=== PATIENT | male | born 1950 | race Caucasian/White ===

== ENCOUNTER → 2017-05-17 | Outpatient (CLI) | payer BC ==
[~2017-05-17] MED LIST: AMLO5CAP2 PO; ASCA500 PO; ASPI-435 PO; BYS/5 PO; CARB25TA12 PO; HYDR25TA4 PO; METH4PAK4 PO; MULT-506 PO; SIMV20TA2 PO
[2017-05-17 10:50] LABS: BASO % 1.1 %; BASO ABS # 0.05 K/uL (0-0.2); COMPLETE YES; EOS % 4.4 %; HEMATOCRIT 44.5 % (42-52); LYMPH % 34.5 %; LYMPH ABS # 1.64 K/uL (1.2-3.4); MEAN CELL VOLUME 88.1 fL (80-100); MEAN CORPUSCULAR HEMOGLOBIN 31.1 pg (25-34); MEAN CORPUSCULAR HGB CONC 35.3 g/dl (32-36); MEAN PLATELET VOLUME 13.1 fL (7.4-10.4); MONO % 14.1 %; NEUT % 45.9 %; PLATELET COUNT 160 K/uL (130-400); RED BLOOD COUNT 5.05 M/uL (4.7-6.1); WHITE BLOOD COUNT 4.76 K/uL (4.8-10.8)
[2017-05-17 11:16] LABS: ESTIMATED AVERAGE GLUCOSE 103 mg/dl; HA1C FLAG Normal (Normal)
[2017-05-17 11:25] LABS: ALT/SGPT 33 U/L (12-78); BLOOD UREA NITROGEN 12 mg/dl (7-18); BUN/CREATININE RATIO 12.8 (10-20); CALCIUM 9.4 mg/dl (8.5-10.1); CARBON DIOXIDE 29 mmol/L (21-32); CHLORIDE 107 mmol/L (98-107); CREATININE 0.96 mg/dl (0.60-1.40); GLUCOSE 96 mg/dl (70-99); POTASSIUM 4.1 mmol/L (3.5-5.1); SODIUM 142 mmol/L (136-145)
[2017-05-17 11:31] LABS: ALB/GLOB RATIO 1.6 (0.9-2); ALKALINE PHOSPHATASE 65 U/L (45-117); AST/SGOT 28 U/L (15-37); CHOLESTEROL 77 mg/dl (0-200); CHOLESTEROL/HDL RATIO 2.4; HDL CHOLESTEROL 32 mg/dl; LDL CHOLESTEROL CALCULATED 21 mg/dl; PROSTATE SPECIFIC ANTIGEN 0.577 ng/ml (0.000-4.000); TRIGLYCERIDES 119 mg/dl (0-150); VERY LOW DENSITY LIPOPROT CALC 24 mg/dl
--- NOTE | 2017-05-22 13:35 | CODING QUERY MEDICAL NECESSITY ---
SUPPORTING DIAGNOSIS NEEDED Dr. Harden, A supporting diagnosis is required for the test/procedure performed on this patient in order for us to be reimbursed by the patient's insurance. Please provide a supporting diagnosis for the following test/procedure listed below next to the test name along with your signature. *If there is no additional diagnosis for this patient that would support the following test/procedure please document that below next to the test/procedure. Test(s)/Procedure(s) that require a supporting diagnosis: * 21735 PSA DIAGNOSIS: DATE OF SERVICE: 05/17/17 Provider Signature: Date: Thank you Myke Echeverria [facility] Information Management Once completed, please kindly fax back to [phone] For questions please call [phone]
== END | disposition home or self-care (01) ==
LOC: C.LABBC 08:52
PROVIDERS: ATTEND Internal Medicine
DX: Z00.00 Encounter for general adult medical examination without abnormal findings (principal); I10 Essential (primary) hypertension; E78.5 Hyperlipidemia, unspecified; Z11.59 Encounter for screening for other viral diseases; R73.09 Other abnormal glucose

== ENCOUNTER → 2017-12-31 | Outpatient (CLI) | payer BC ==
[2017-12-31 10:32] LABS: BASO % 0.6 %; BASO ABS # 0.03 K/uL (0-0.2); EOS % 4.6 %; EOS ABS # 0.22 K/uL (0-0.5); HEMATOCRIT 42.1 % (42-52); LYMPH ABS # 1.47 K/uL (1.2-3.4); MEAN CELL VOLUME 86.3 fL (80-100); MEAN CORPUSCULAR HEMOGLOBIN 30.7 pg (25-34); MEAN CORPUSCULAR HGB CONC 35.6 g/dl (32-36); MEAN PLATELET VOLUME 13.1 fL (7.4-10.4); MONO % 11.2 %; MONO ABS # 0.53 K/uL (0.11-0.59); NEUT % 52.6 %; NEUT ABS # 2.49 K/uL (1.4-6.5); PLATELET COUNT 154 K/uL (130-400); RED CELL DISTRIBUTION WIDTH CV 12.8 % (11.5-14.5); RED CELL DISTRIBUTION WIDTH SD 40.8 fL (36.4-46.3); WHITE BLOOD COUNT 4.74 K/uL (4.8-10.8)
[2017-12-31 10:57] LABS: HEMOGLOBIN A1C 5.2 % (4.5-5.6)
[2017-12-31 11:18] LABS: ALBUMIN 4.1 gm/dl (3.4-5.0); ALT/SGPT 23 U/L (12-78); AST/SGOT 23 U/L (15-37); BLOOD UREA NITROGEN 17 mg/dl (7-18); CARBON DIOXIDE 28 mmol/L (21-32); CHOLESTEROL 75 mg/dl (0-200); CREATININE 0.88 mg/dl (0.60-1.40); GLUCOSE 101 mg/dl (70-99); POTASSIUM 3.8 mmol/L (3.5-5.1); SODIUM 141 mmol/L (136-145)
[2017-12-31 11:29] LABS: ALKALINE PHOSPHATASE 69 U/L (45-117); LDL CHOLESTEROL CALCULATED 24 mg/dl; TOTAL PROTEIN 7.2 gm/dl (6.4-8.2)
== END | disposition home or self-care (01) ==
LOC: C.LABBC 06:59
PROVIDERS: ATTEND Internal Medicine
DX: Z00.00 Encounter for general adult medical examination without abnormal findings (principal); I10 Essential (primary) hypertension; E78.5 Hyperlipidemia, unspecified; N40.1 Benign prostatic hyperplasia with lower urinary tract symptoms; Z11.59 Encounter for screening for other viral diseases; R73.09 Other abnormal glucose

== ENCOUNTER 2025-07-22 11:34 | Observation (INO) ==
[2025-07-22] MEDS: ATROPINE SO4 1 MG/ML 1ML VIAL IV STA (11:56)
[2025-07-22] MEDS: SODIUM CHLORIDE 0.9% 1,000 ML IV ONE (11:57)
[2025-07-22 12:13] LABS: Base Excess VBG 0.6 mEq/L; HCO3 VBG 27 mmol/L; Oxygen Saturation VBG < 60.0 %; PCO2 VBG 47 mmHg (38-50); PO2 VBG < 20 mmHg; pH VBG 7.36 (7.36-7.41)
[2025-07-22 12:31] LABS: Hematocrit (blood only) 44.3 % (42.0-52.0); Hemoglobin 15.0 g/dL (14.0-18.0); Immature Granulocytes # (auto) 0.02 K/uL (0.01-0.20); Immature Granulocytes % (auto) 0.3 %; Mean Corpuscular Hemoglobin 30.7 pg (25.0-34.0); Mean Corpuscular Volume 90.6 fL (80.0-100.0); Platelet Count 189 K/uL (130-400); RDW Standard Deviation 42.7 fL (36.4-46.3); Red Blood Count 4.89 M/uL (4.70-6.10); White Blood Count 7.84 K/ul (4.8-10.8)
--- NOTE | 2025-07-22 12:42 | XRay Report ---
XR chest 1V portable HISTORY: 74 years-old Male Chest pain, nonspecific COMPARISON: 10/28/2015 TECHNIQUE: AP view of the chest FINDINGS: Cardiac silhouette is mildly enlarged. No pneumothorax. No overt pulmonary edema. Mild linear subsegm ental bibasilar densities again noted. Blunting of the costophrenic angles. No large pleural effusion . Bones appear grossly intact. IMPRESSION: 1. Bibasilar opacities favor atelectasis. 2. Cardiomegaly without overt pulmonary edema. ACT 112: Negative or not required by law. The above report was generated using voice recognition software. It may contain grammatical, syntax o r spelling errors. Electronically signed by: Butch Cohn M.D. 07/22/2025 12:40 PM
[2025-07-22 12:45] LABS: Alanine Aminotransferase 26.0 U/L (7-52); Albumin Globulin Ratio 1.5 (0.9-2); Albumin Level 4.5 gm/dl (3.4-5.0); Alkaline Phosphatase 68.0 U/L (34-104); Anion Gap 8.0 (3-11); Bilirubin,Total 0.8 mg/dl (0.2-1.0); Blood Urea Nitrogen 24.0 mg/dl (6-23); Calcium 10.6 mg/dl (8.6-10.3); Carbon Dioxide 27.0 mmol/L (21-32); Chloride 104.0 mmol/L (98-107); Creatinine Clr Calc Pharmacy 72.7 ml/min; Globulin 3.0 gm/dl (2.5-4.0); Glucose 99.0 mg/dl (70-99(Fasting)); Lipase 27.0 U/L (11-82); Magnesium 2.3 mg/dl (1.7-2.4); Potassium 4.6 mmol/L (3.5-5.1); Sodium 139.0 mmol/L (136-145); Total Protein 7.5 gm/dl (6.0-8.3)
[2025-07-22] MEDS: ATROPINE SULFATE 0.1 MG/ML 10ML SYR IV STA (12:49)
--- NOTE | 2025-07-22 13:36 | Emergency Department Note ---
Impression & Plan Bradycardia, Weakness ED Provider Note NAME: MANAS ORTIZ AGE: 74 SEX: M ARRIVES VIA: Walk-In INFORMANT: [Patient][, ] ED PROVIDER(S): Edgar Jewell MD CHIEF COMPLAINT: General weakness, near syncope PLAN: Disposition: Hospitalized Condition: Serious MEDICAL DECISION MAKING: Patient found to be in a significant sinus bradycardia with a rate as low as 32 bpm. Patient maintaining normal blood pressure, states he feels generally fatigued. He did respond to atropine and his heart rate is more reasonable and he is feeling much improved. He is on metoprolol and amlodipine, suspect this could be partially secondary to medications but he denies any recent medication changes. His troponin is negative and electrolytes are reassuring. Suspect he require hospitalization for cardiac monitoring, treatment. He also reports that he recently had Lyme disease, although there is no specific block. Triage Nursing notes reviewed and agree them. [Additional history obtained from] [] [Prior medical records reviewed] [] Vital Signs: reviewed and remarkable for [no significant abnormalities] Differential diagnosis: Sinus bradycardia, third-degree heart block, secondary heart block, dehydration, medication overdose, acute coronary syndrome ER treatment provided: Patient given IV fluids, atropine x 2 Diagnostics interpreted by me: ECG: Significant sinus bradycardia without acute ischemic changes, frequent PVCs on multiple EKGs, has maintained sinus rhythm throughout his emergency department stay based on telemetry monitoring. Cardiac Monitoring: Sinus bradycardia, responsive to atropine, frequent PVCs and occasional bigeminy Laboratory studies: [See below] [] Imaging studies: [See below] [] Consultation(s): Cardiology:Case discussed with Dr. Banks of cardiology, went over blood pressure, heart rate and EKG and does not recommend any specific inotropic medications or drips, require close monitoring, observation, telemetry and possible pacemaker if does not improve. HPI: 74/M arrives for evaluation of General weakness, fatigue, bradycardia. Patient states that this started yesterday, he was doing some snowblowing and snow removal and he had no energy and increased fatigue. He states that prior to yesterday he was in his normal state of health and can get up and down stairs without any difficulty. He has had significant difficulty since yesterday. ROS: See above HPI for pertinent positives & negatives. A total of [10] systems reviewed and were otherwise negative. PAST MEDICAL HISTORY:[See Below] PAST SURGICAL HISTORY:[See Below] FAMILY HISTORY:[See Below] SOCIAL HISTORY:[See Below] HOME MEDICATIONS:[See Below] ALLERGIES:[See Below] VITALS:[See Below] PHYSICAL EXAMINATION: Gen: No acute distress, generally well appearing Eyes: PERRL, no redness or injection, EOMI Neck: Supple, normal ROM CV: S1, S2, No murmurs, no lower extremity edema, Heart rate irregular, slow, bradycardia Pulm: CTA bilaterally, no increased work of breathing, no wheezing GI: Abd soft, nontender, normal bowel sounds, no distension : No CVA tenderness, no suprapubic abdominal tenderness or distension Neuro: No acute focal neuro deficits, normal strength and sensation Skin: No rashes, wounds, or erythema. ED COURSE: Times/Reassessments: 1:30 PM: Patient states that he is occasionally getting some dizziness and lightheadedness. He remains in a sinus rhythm with frequent PVCs. He was responsive to atropine but does get bradycardic after it wears off. Blood pressure is adequate and mentation is adequate as well. Plan for hospitalization and likely require pacemaker if this does not improve with with holding his metoprolol and amlodipine. 2:00 PM: Patient reassessed, he has been attaining his normal mental status and his heart rate is staying around 40 to low 50s with frequent PVCs. He does state that the PVCs are more chronic. Plan for hospitalization. Reached out to not any cardiology to see if any other interventions they would perform in the emergency department or dopamine or epinephrine drips but patient seems relatively stable in the bradycardia at this point. 2:29 PM, case discussed with cardiology, they do not recommend any other acute interventions in the emergency department, but hospitalization, telemetry and withholding metoprolol and possible plan for intervention if he does not improve. 3:00 PM: Patient discussed with the hospitalist who will evaluate the patient with plans for hospitalization and monitoring. Procedures: [none] PDMP:[reviewed and no issues] [Critical Care:] [None] Edgar Jewell MD Past Med/Surg History Problem List (Updated 07/22/25 @ 17:39 by Edgar Jewell MD) Weakness (Acute) Bradycardia (Acute) Symptomatic bradycardia Recurrent epistaxis History of palpitations Obesity (BMI 30-39.9) Arthritis Restless legs syndrome (Chronic) Lumbar stenosis (Chronic) Dyslipidemia (Chronic) Hypertension (Chronic) Medical History Impaired glucose regulation BPH with obstruction/lower urinary tract symptoms Surgical History History of total hip replacement History of lumbar laminectomy History of arthroscopy of right shoulder History of arthroscopy of left shoulder Hx of cystoscopy Family History Brother Myocardial infarction, Onset Age: 61 Aneurysm of abdominal aorta Mother Breast cancer Heart failure Father Coronary heart disease Myocardial infarction Other Heart disease Hypertension Denies family history of Ovarian cancer Prostate cancer Diabetes Lung cancer Colorectal cancer Stroke Social History Smoking Status: Former smoker Tobacco Type: Cigarettes Age Started Using Tobacco: 6; Age Quit Using Tobacco: 18; packs per day: 1; Second Hand Exposure: No; Do You Dip or Chew Tobacco: No; Hx Alcohol Use: No Hx Substance Use: No Preferred Language: British Communication Ability: Effective Visual Impairment: No Limitations Hearing Ability: Use of Hearing Aid Speech Lang Path Therapist Required: No marital status: Current Living Situation: Spouse and Family current occupational status: retired How many Children do You have: 1 Feels Safe at Home: Yes Childhood Exposure to Second-Hand Smoke: Yes caffeine: Yes Dental Care, Regularly: Yes Physical Activity Frequency: Does not Exercise Physical Activity Frequency Comment: Active lifestyle Seatbelt Use: always Sunscreen Use: No Allergies Allergies Allergy/AdvReac Type Severity Reaction Status Date / Time finasteride Allergy Unknown RASH Verified 06/26/25 09:23 niacin Allergy Unknown RED,ITCHY,R Verified 06/26/25 09:23 GABRIELA silodosin Allergy Unknown RASH Verified 06/26/25 09:23 morphine AdvReac Severe RAPID BP Verified 06/26/25 09:23 DROP Home Meds Home Medications Medication Instructions Recorded Confirmed ascorbic acid (vitamin C) 1,000 mg 2 g PO QAM 02/17/20 07/22/25 tablet (Vitamin C) ibuprofen 200 mg tablet 400 - 600 mg PO QAM PRN Pain 02/17/20 07/22/25 multivitamin 1 tab PO QAM 02/17/20 07/22/25 cyclobenzaprine 5 mg tablet 0 mg PO HS PRN muscle spasm 07/22/25 07/22/25 metoprolol succinate 25 mg 12.5 mg PO HS 07/22/25 07/22/25 tablet,extended release 24 hr Previous Rx's Medication Instructions Recorded carbidopa 25 mg-levodopa 100 mg 1 tab PO PM #90 tabs 06/27/24 tablet simvastatin 20 mg tablet 20 mg PO DAILY #90 tabs 10/01/24 nebivolol 5 mg tablet (Bystolic) 5 mg PO DAILY #90 tabs 12/29/24 spironolactone 25 1 tab PO DAILY #90 tabs 04/03/25 mg-hydrochlorothiazide 25 mg tablet amlodipine 5 mg-benazepril 40 mg 1 cap PO DAILY #90 caps 07/03/25 capsule Results & Data (ED) Vital Signs Vital Signs - 24 hr 07/22/25 11:35 07/22/25 11:50 07/22/25 12:00 Temperature 36.9 C Temperature Source Temporal Artery Scan Pulse Rate 36 L 53 L Pulse Rate [Apical] Pulse Rate from SpO2 Sensor Respiratory Rate 15 14 Respiratory Effort / Characteristics Non-Labored Spontaneous Respiratory Depth Normal Respiratory Pattern Regular Blood Pressure 134/61 100/63 Blood Pressure [Right Arm] Blood Pressure Mean 85 75 Blood Pressure Mean [Right Arm] Pulse Oximetry 94 94 Oxygen Delivery Method Room Air Room Air Sepsis Recent Fever Within 48 Hours No Sepsis New/Unexplained Change in Mental Status N/A Sepsis Action Taken by Nursing No Action Required 07/22/25 12:17 07/22/25 12:24 07/22/25 12:27 Temperature Temperature Source Pulse Rate 64 62 61 Pulse Rate [Apical] Pulse Rate from SpO2 Sensor Respiratory Rate 18 21 13 Respiratory Effort / Characteristics Respiratory Depth Respiratory Pattern Blood Pressure 129/64 111/84 111/84 Blood Pressure [Right Arm] Blood Pressure Mean 85 93 93 Blood Pressure Mean [Right Arm] Pulse Oximetry 96 93 93 Oxygen Delivery Method Room Air Room Air Room Air Sepsis Recent Fever Within 48 Hours Sepsis New/Unexplained Change in Mental Status Sepsis Action Taken by Nursing 07/22/25 12:30 07/22/25 12:36 07/22/25 12:51 Temperature Temperature Source Pulse Rate 49 L 31 L Pulse Rate [Apical] Pulse Rate from SpO2 Sensor Respiratory Rate 16 23 Respiratory Effort / Characteristics Short of Breath Respiratory Depth Respiratory Pattern Blood Pressure 114/58 L 104/54 L Blood Pressure [Right Arm] Blood Pressure Mean 76 70 Blood Pressure Mean [Right Arm] Pulse Oximetry 97 93 Oxygen Delivery Method Room Air Room Air Room Air Sepsis Recent Fever Within 48 Hours Sepsis New/Unexplained Change in Mental Status Sepsis Action Taken by Nursing 07/22/25 12:54 07/22/25 13:51 07/22/25 13:54 Temperature Temperature Source Pulse Rate 52 L 62 31 L Pulse Rate [Apical] Pulse Rate from SpO2 Sensor 52 L Respiratory Rate 23 20 18 Respiratory Effort / Characteristics Respiratory Depth Respiratory Pattern Blood Pressure 116/67 118/73 Blood Pressure [Right Arm] Blood Pressure Mean 83 88 Blood Pressure Mean [Right Arm] Pulse Oximetry 93 96 94 Oxygen Delivery Method Room Air Room Air Room Air Sepsis Recent Fever Within 48 Hours Sepsis New/Unexplained Change in Mental Status Sepsis Action Taken by Nursing 07/22/25 14:00 07/22/25 14:06 07/22/25 14:12 Temperature Temperature Source Pulse Rate 59 L 50 L 46 L Pulse Rate [Apical] Pulse Rate from SpO2 Sensor 51 L 46 L 45 L Respiratory Rate 22 25 H 17 Respiratory Effort / Characteristics Respiratory Depth Respiratory Pattern Blood Pressure 113/62 112/62 108/59 L Blood Pressure [Right Arm] Blood Pressure Mean 79 78 75 Blood Pressure Mean [Right Arm] Pulse Oximetry 95 95 92 Oxygen Delivery Method Room Air Room Air Room Air Sepsis Recent Fever Within 48 Hours Sepsis New/Unexplained Change in Mental Status Sepsis Action Taken by Nursing 07/22/25 14:21 07/22/25 14:27 07/22/25 14:30 Temperature Temperature Source Pulse Rate 47 L 46 L 44 L Pulse Rate [Apical] Pulse Rate from SpO2 Sensor 49 L 46 L Respiratory Rate 14 19 18 Respiratory Effort / Characteristics Respiratory Depth Respiratory Pattern Blood Pressure 97/63 L 101/71 99/64 L Blood Pressure [Right Arm] Blood Pressure Mean 74 81 75 Blood Pressure Mean [Right Arm] Pulse Oximetry 92 91 92 Oxygen Delivery Method Room Air Room Air Room Air Sepsis Recent Fever Within 48 Hours Sepsis New/Unexplained Change in Mental Status Sepsis Action Taken by Nursing 07/22/25 14:41 07/22/25 14:44 07/22/25 15:15 Temperature Temperature Source Pulse Rate 33 L 45 L Pulse Rate [Apical] 35 L Pulse Rate from SpO2 Sensor 48 L Respiratory Rate 25 H 20 Respiratory Effort / Characteristics Non-Labored Spontaneous Respiratory Depth Normal Respiratory Pattern Blood Pressure 106/78 Blood Pressure [Right Arm] 98/59 L Blood Pressure Mean 87 Blood Pressure Mean [Right Arm] 72 Pulse Oximetry 92 92 Oxygen Delivery Method Room Air Room Air Sepsis Recent Fever Within 48 Hours Sepsis New/Unexplained Change in Mental Status Sepsis Action Taken by Nursing 07/22/25 15:21 07/22/25 15:21 07/22/25 15:30 Temperature Temperature Source Pulse Rate 46 L 35 L Pulse Rate [Apical] Pulse Rate from SpO2 Sensor 43 L 38 L Respiratory Rate 20 14 Respiratory Effort / Characteristics Respiratory Depth Respiratory Pattern Blood Pressure 118/74 118/74 89/48 L Blood Pressure [Right Arm] Blood Pressure Mean 91 88 61 Blood Pressure Mean [Right Arm] Pulse Oximetry 91 90 Oxygen Delivery Method Sepsis Recent Fever Within 48 Hours Sepsis New/Unexplained Change in Mental Status Sepsis Action Taken by Nursing 07/22/25 15:33 07/22/25 15:39 07/22/25 15:42 Temperature Temperature Source Pulse Rate 35 L 34 L 50 L Pulse Rate [Apical] Pulse Rate from SpO2 Sensor 39 L 34 L Respiratory Rate 12 Respiratory Effort / Characteristics Respiratory Depth Respiratory Pattern Blood Pressure 100/58 L 86/62 L Blood Pressure [Right Arm] Blood Pressure Mean 81 70 Blood Pressure Mean [Right Arm] Pulse Oximetry 93 90 Oxygen Delivery Method Sepsis Recent Fever Within 48 Hours Sepsis New/Unexplained Change in Mental Status Sepsis Action Taken by Nursing 07/22/25 15:42 07/22/25 15:51 07/22/25 16:09 Temperature Temperature Source Pulse Rate 34 L 38 L 42 L Pulse Rate [Apical] Pulse Rate from SpO2 Sensor 39 L 42 L 39 L Respiratory Rate 15 19 20 Respiratory Effort / Characteristics Respiratory Depth Respiratory Pattern Blood Pressure 102/70 112/64 127/75 Blood Pressure [Right Arm] Blood Pressure Mean 80 80 92 Blood Pressure Mean [Right Arm] Pulse Oximetry 90 92 93 Oxygen Delivery Method Sepsis Recent Fever Within 48 Hours Sepsis New/Unexplained Change in Mental Status Sepsis Action Taken by Nursing 07/22/25 16:12 Temperature Temperature Source Pulse Rate 46 L Pulse Rate [Apical] Pulse Rate from SpO2 Sensor 40 L Respiratory Rate 20 Respiratory Effort / Characteristics Respiratory Depth Respiratory Pattern Blood Pressure 115/69 Blood Pressure [Right Arm] Blood Pressure Mean 84 Blood Pressure Mean [Right Arm] Pulse Oximetry 94 Oxygen Delivery Method Sepsis Recent Fever Within 48 Hours Sepsis New/Unexplained Change in Mental Status Sepsis Action Taken by Custodial Medications Current Medication List: was personally reviewed by me Additional Comments: Patient on metoprolol, amlodipine which could be affecting heart rate Laboratory Data Attestation: I reviewed the patient's lab results. Negative troponin, normal electrolytes 07/22/25 11:50 07/22/25 11:50 Lab Results 07/22/25 07/22/25 Range/Units 11:50 11:59 WBC 7.84 (4.8-10.8) K/ul RBC 4.89 (4.70-6.10) M/uL Hgb 15.0 (14.0-18.0) g/dL POC Hgb 14.6 (14.0-18.0) g/dl Hct 44.3 (42.0-52.0) % POC Hct 43 (42-52) % MCV 90.6 (80.0-100.0) fL MCH 30.7 (25.0-34.0) pg MCHC 33.9 (32.0-36.0) g/dL RDW Std Deviation 42.7 (36.4-46.3) fL RDW Coeff of Pacheco 13.0 (11.5-14.5) % Plt Count 189 (130-400) K/uL MPV 12.4 (9.4-12.4) fL Immature Gran % (Auto) 0.3 % Neut % (Auto) 58.2 % Lymph % (Auto) 25.6 % [place] % (Auto) 11.4 % Eos % (Auto) 3.6 % Baso % (Auto) 0.9 % Neut # (Auto) 4.57 (1.40-6.50) K/uL Lymph # (Auto) 2.01 (1.20-3.40) K/uL [place] # (Auto) 0.89 H (0.11-0.59) K/uL Eos # (Auto) 0.28 (0.00-0.50) K/uL Baso # (Auto) 0.07 (0.00-0.20) K/uL Immature Gran # (Auto) 0.02 (0.01-0.20) K/uL VBG pH 7.36 (7.36-7.41) VBG pCO2 47 (38-50) mmHg VBG pO2 < 20 mmHg VBG HCO3 27 mmol/L VBG O2 Saturation < 60.0 % VBG Base Excess 0.6 mEq/L POC Sodium 140 (135-144) mmol/L Sodium 139 (136-145) mmol/L POC Potassium 4.7 (3.3-5.0) mmol/L Potassium 4.6 (3.5-5.1) mmol/L POC Chloride 103 (101-112) mmol/L Chloride 104 (98-107) mmol/L Carbon Dioxide 27 (21-32) mmol/L POC Total CO2 24 (24-31) mmol/L Anion Gap 8 (3-11) POC Anion Gap 18.0 (16-25) mmol/L POC BUN 25 H (7-18) mg/dl BUN 24 H (6-23) mg/dl Creatinine 1.00 (0.6-1.4) mg/dl POC Creatinine 1.1 (0.6-1.3) mg/dl Est Cr Clr Drug Dosing 72.7 ml/min eGFR 78.00 BUN/Creatinine Ratio 24.0 H (10-20) Glucose 99 (70-99(Fasting)) mg/dl POC Glucose (other) 100 H (70-99) mg/dl Lactate 1.2 (0.4-2.0) mmol/L Calcium 10.6 H (8.6-10.3) mg/dl POC Ioniz Calcium Carlito 1.33 H (1.12-1.32) mmol/l Magnesium 2.3 (1.7-2.4) mg/dl Total Bilirubin 0.8 (0.2-1.0) mg/dl AST 30 (13-39) U/L ALT 26 (7-52) U/L Alkaline Phosphatase 68 (34-104) U/L Troponin I High Sens 13.7 (0-20) pg/ml Total Protein 7.5 (6.0-8.3) gm/dl Albumin 4.5 (3.4-5.0) gm/dl Globulin 3.0 (2.5-4.0) gm/dl Albumin/Globulin Ratio 1.5 (0.9-2) Lipase 27 (11-82) U/L Administered Medications Discontinued Medications Atropine Sulfate (Atropine So4 1 Mg/Ml 1ml Vial) 1 mg IV NOW STA Stop: 07/22/25 11:52 Last Admin: 07/22/25 11:56 Dose: 1 mg Documented By: JAGDEEP Atropine Sulfate (Atropine Sulfate 0.1 Mg/Ml 10ml Syr) 0.5 mg IV NOW STA Stop: 07/22/25 12:46 Last Admin: 07/22/25 12:49 Dose: 0.5 mg Documented By: Sodium Chloride (Nss) 1,000 mls @ 999 mls/hr IV .Q1H1M ONE Stop: 07/22/25 12:51 Last Infusion: 07/22/25 13:03 Dose: Infused Documented By: Admin: 07/22/25 11:57 Dose: 999 mls/hr Documented By: JAGDEEP Imaging Data Attestation: I personally reviewed and interpreted this imaging study as follows: My Impression: Cardiomegaly, no acute pneumonia Radiologist's Impression: Chest X-Ray 07/22/25 11:51 XR chest 1V portable HISTORY: 74 years-old Male Chest pain, nonspecific COMPARISON: 10/28/2015 TECHNIQUE: AP view of the chest FINDINGS: Cardiac silhouette is mildly enlarged. No pneumothorax. No overt pulmonary edema. Mild linear subsegmental bibasilar densities again noted. Blunting of the costophrenic angles. No large pleural effusion. Bones appear grossly intact. IMPRESSION: 1. Bibasilar opacities favor atelectasis. 2. Cardiomegaly without overt pulmonary edema. ACT 112: Negative or not required by law. The above report was generated using voice recognition software. It may contain grammatical, syntax or spelling errors. Electronically signed by: Butch Cohn M.D. 07/22/2025 12:40 PM Discharge Plan Visit Data Chief Complaint: Cardiac Assessment Stated Complaint: DIZZINESS, SOB, CHEST PRESSURE ED Provider: Edgar Jewell Discharge Problem: Bradycardia, Weakness Patient Disposition: Admitted As Inpatient Condition: Serious Discharge Instructions Interventions: ED Discharge Assessment Last Done: 07/22/25 17:24 Forms Stand Alone Forms: [facility] [employer] Prescriptions Prescriptions: No Action simvastatin 20 mg tablet 20 mg PO DAILY Qty: 90 3RF nebivolol [Bystolic] 5 mg tablet 5 mg PO DAILY Qty: 90 3RF spironolacton-hydrochlorothiaz 25-25 mg tablet 1 tab PO DAILY Qty: 90 3RF amlodipine-benazepril 5-40 mg capsule 1 cap PO DAILY Qty: 90 3RF carbidopa-levodopa 25-100 mg tablet 1 tab PO PM Qty: 90 3RF multivitamin Tablet 1 tab PO QAM Patient Comments: 07/22- otc unable to verify ascorbic acid (vitamin C) [Vitamin C] 1,000 mg Tablet 2 g PO QAM Patient Comments: 07/22- otc unable to verify ibuprofen 200 mg Tablet 400 - 600 mg PO QAM PRN (Reason: Pain) Patient Comments: 07/22- otc unable to verify metoprolol succinate 25 mg tablet extended release 24 hr 12.5 mg PO HS Patient Comments: 07/22-per wellness visit note(06/25) wean off metoprolol succinate: from 25mg hs to 12.5mg hs x2wk then stop cyclobenzaprine 5 mg tablet 0 mg PO HS PRN (Reason: muscle spasm) Patient Comments: 07/22- no fill history unable to verify Referrals Referrals: Ginger Rabago MD [Primary Care Provider] -
--- NOTE | 2025-07-22 14:43 | Electrocardiogram Report ---
Test Reason : Blood Pressure : */* mmHG Vent. Rate : 43 BPM Atrial Rate : 33 BPM P-R Int : 196 ms QRS Dur : 90 ms QT Int : 494 ms P-R-T Axes : 70 19 24 degrees QTcB Int : 417 ms Marked sinus bradycardia with occasional Premature ventricular complexes Abnormal ECG When compared with ECG of 17-Feb-2020 11:43, Premature ventricular complexes are now Present Confirmed by Alfonso Banks ([id number]) on 07/22/2025 2:43:08 PM Referred By: REFERRED SELF Confirmed By: Alfonso Banks
--- NOTE | 2025-07-22 16:07 | History & Physical Report ---
Date of Service July 22, 2025 Assessment & Plan (1) Symptomatic bradycardia: (2) Hypertension: (3) Lumbar stenosis: (4) Restless legs syndrome: Plan 74-year-old male on multiple outpatient medications including Nebivolol and metoprolol who presents with symptomatic bradycardia. Patient was given atropine with improvement of intrinsic heart rate antihypertensive medications are held. Patient also had an episode of Lyme disease treated 1 year ago. He is currently not in heart failure there is been no recent echocardiogram or cardiac history noted in the patient's chart #Symptomatic bradycardia. Hold all antihypertensive medications if need be able to use hydralazine for blood pressure control. If the patient picks up with his heart rate will need to readdress his antihypertensive choices if it does not we will consider consultation with cardiology. Lyme has been reordered however it might be difficult to interpret with previous Lyme infection. TSH is also pending. Patient will have pacer pads placed prophylactically and have as needed atropine ordered he is in a higher level telemetry unit. Patient will have his amlodipine benazepril held may institute HELEN inhibitor if need be for blood pressure control. Echocardiogram is ordered #Restless leg syndrome chronic back pain. Patient typically uses ibuprofen and cyclobenzaprine as needed these will be offered if needed For the restless leg syndrome the patient takes carbidopa levodopa. There is n o formal diagnosis of Parkinson's disease #DVT prevention be started the evening of the fourth if the patient remains in the facility he is currently without DVT prevention in case a procedure such as pacemaker placement be warranted. Patient is a full code Complex medical decision making regarding treatment of antihypertensive medications bradycardia possible secondary causes consideration for invasive device implantation History of Present Illness Primary Care Provider: Ginger Rabago MD Presents with fatigue and weakness was found to have a sinus bradycardia in the 30s. Patient has a history of Lyme disease treated in 2023. Patient takes medications affecting his cardiac status including metoprolol and he has bisoprolol also listed. Patient was given a dose of atropine in the emergency department with improvement however this was transient. I discussed use of glucagon with the emergency room doctor he did not feel it was appropriate at this time. Patient states he did feel dizzy with these bradycardic episodes he did feel dizzy in April intermittently but this resolved. In addition to the dizziness he also feels some dyspnea on exertion with these episodes these are always in a standing position and never at sitting or lying. He said no chest pain associated with this. Patient has a history of hypertension restless leg syndrome chronic back pain from lumbar stenosis and dyslipidemia patient takes carbidopa levodopa for his restless leg syndrome Allergies Allergy/AdvReac Type Severity Reaction Status Date / Time finasteride Allergy Unknown RASH Verified 06/26/25 09:23 niacin Allergy Unknown RED,ITCHY,R Verified 06/26/25 09:23 GABRIELA silodosin Allergy Unknown RASH Verified 06/26/25 09:23 morphine AdvReac Severe RAPID BP Verified 06/26/25 09:23 DROP Home Medications Medication Instructions Recorded Confirmed Type ascorbic acid (vitamin C) 1,000 mg 2 g PO QAM 02/17/20 07/22/25 History tablet (Vitamin C) ibuprofen 200 mg tablet 400 - 600 mg PO QAM PRN Pain 02/17/20 07/22/25 History multivitamin 1 tab PO QAM 02/17/20 07/22/25 History carbidopa 25 mg-levodopa 100 mg 1 tab PO PM #90 tabs 06/27/24 07/22/25 Rx tablet simvastatin 20 mg tablet 20 mg PO DAILY #90 tabs 10/01/24 07/22/25 Rx nebivolol 5 mg tablet (Bystolic) 5 mg PO DAILY #90 tabs 12/29/24 07/22/25 Rx spironolactone 25 1 tab PO DAILY #90 tabs 04/03/25 07/22/25 Rx mg-hydrochlorothiazide 25 mg tablet amlodipine 5 mg-benazepril 40 mg 1 cap PO DAILY #90 caps 07/03/25 07/22/25 Rx capsule cyclobenzaprine 5 mg tablet 0 mg PO HS PRN muscle spasm 07/22/25 07/22/25 History metoprolol succinate 25 mg 12.5 mg PO HS 07/22/25 07/22/25 History tablet,extended release 24 hr Past Med/Surg History Problem List (Updated 07/22/25 @ 16:04 by Manish Chau MD) Symptomatic bradycardia Recurrent epistaxis History of palpitations Obesity (BMI 30-39.9) Arthritis Restless legs syndrome (Chronic) Lumbar stenosis (Chronic) Dyslipidemia (Chronic) Hypertension (Chronic) Medical History Impaired glucose regulation BPH with obstruction/lower urinary tract symptoms Surgical History History of total hip replacement History of lumbar laminectomy History of arthroscopy of right shoulder History of arthroscopy of left shoulder Hx of cystoscopy Family History Brother Myocardial infarction, Onset Age: 61 Aneurysm of abdominal aorta Mother Breast cancer Heart failure Father Coronary heart disease Myocardial infarction Other Heart disease Hypertension Denies family history of Ovarian cancer Prostate cancer Diabetes Lung cancer Colorectal cancer Stroke Social History Smoking Status: Former smoker Tobacco Type: Cigarettes Age Started Using Tobacco: 6; Age Quit Using Tobacco: 18; packs per day: 1; Second Hand Exposure: No; Do You Dip or Chew Tobacco: No; Hx Alcohol Use: No Hx Substance Use: No Preferred Language: [place] Communication Ability: Effective Visual Impairment: No Limitations Hearing Ability: Use of Hearing Aid Direct Selling Counselor Required: No marital status: Current Living Situation: Spouse and Family current occupational status: retired How many Children do You have: 1 Feels Safe at Home: Yes Childhood Exposure to Second-Hand Smoke: Yes caffeine: Yes Dental Care, Regularly: Yes Physical Activity Frequency: Does not Exercise Physical Activity Frequency Comment: Active lifestyle Seatbelt Use: always Sunscreen Use: No Review of Systems Review of Systems: Mild distress recent increased exertional fatigue no headache, no visual changes no speech or swallowing issues no chest pain, pressure or palpitations, patient has no sensation of his low heart rate Dyspnea on exertion but no cough or wheezes no abdominal pain, nausea or vomiting, diarrhea or constipation no dysuria, hematuria or frequency no focal joint pain or swelling no back pain, CVA tenderness or radicular pain no bruising, bleeding or rashes no focal signs of weakness or numbness or altered sensation no complaints of anxiety or depression.. Physical Exam Physical Exam: The patient appeared well nourished and normally developed. Vital signs as documented. Bradycardic and hypotensive MAP is greater than 65 Head exam is normocephalic atraumatic Neck is without JVD, thyromegaly, or carotid bruits. Lungs are clear to auscultation, no focal loss of breath sounds Cardiac exam, Rhythm is regular, but bradycardic. No murmurs, rubs or gallops. Abdominal exam reveals normal bowel sounds, soft non tender, no masses Extremities are nonedematous and both pedal pulses are present Neurologic exam is alert and oriented, no focal loss of strength or sensation Skin is without bruises or rashes Psychologically is without concerns for anxiety or depression.. Results & Data Results & Data Vital Signs (Past 12 Hours) Vital Signs Temp Pulse Pulse Resp BP BP Pulse Ox 07/22/25 15:42 50 L 07/22/25 14:44 33 L 07/22/25 14:41 35 L 25 H 98/59 L 92 07/22/25 14:30 44 L 18 99/64 L 92 07/22/25 14:27 46 L 19 101/71 91 07/22/25 14:21 47 L 14 97/63 L 92 07/22/25 14:12 46 L 17 108/59 L 92 07/22/25 14:06 50 L 25 H 112/62 95 07/22/25 14:00 59 L 22 113/62 95 07/22/25 13:54 31 L 18 94 07/22/25 13:51 62 20 118/73 96 07/22/25 12:54 52 L 23 116/67 93 07/22/25 12:51 31 L 23 104/54 L 93 07/22/25 12:36 49 L 16 114/58 L 97 07/22/25 12:30 07/22/25 12:27 61 13 111/84 93 07/22/25 12:24 62 21 111/84 93 07/22/25 12:17 64 18 129/64 96 07/22/25 12:00 94 07/22/25 11:50 53 L 14 100/63 07/22/25 11:35 98.4 F 36 L 15 134/61 94 O2 Del Method 07/22/25 15:42 07/22/25 14:44 07/22/25 14:41 Room Air 07/22/25 14:30 Room Air 07/22/25 14:27 Room Air 07/22/25 14:21 Room Air 07/22/25 14:12 Room Air 07/22/25 14:06 Room Air 07/22/25 14:00 Room Air 07/22/25 13:54 Room Air 07/22/25 13:51 Room Air 07/22/25 12:54 Room Air 07/22/25 12:51 Room Air 07/22/25 12:36 Room Air 07/22/25 12:30 Room Air 07/22/25 12:27 Room Air 07/22/25 12:24 Room Air 07/22/25 12:17 Room Air 07/22/25 12:00 Room Air 07/22/25 11:50 07/22/25 11:35 Room Air Laboratory Results Reviewed laboratories with CBC and chemistry. Pending TSH and Lyme screen EKG shows sinus bradycardia Chest x-ray is unremarkable Code Status & VTE Plan VTE Prophylaxis Plan VTE Prophylaxis will be ordered: Yes PG Care Time/CCT Total # of Minutes Spent Total Time Spent with Patient: Total time spent is greater than 50% in coordination of care (as documented) at patient's floor/unit and/or counseling patient: Coding Level of Care Code 07440 INT INP/OBS CARE 3/75MIN Diagnoses Symptomatic bradycardia R00.1 Hypertension I10 Lumbar stenosis M48.061 Restless legs syndrome G25.81
[2025-07-22] MEDS ORDERED: ATROPINE SULFATE 0.1 MG/ML 10ML SYR IV PRN (17:44)
[2025-07-22] MEDS ORDERED: ONDANSETRON INJ 2 MG/ML 2 ML VIAL IV PRN (17:44)
[2025-07-22] MEDS ORDERED: ACETAMINOPHEN 325 MG TAB PO PRN (17:44)
[2025-07-22] MEDS ORDERED: ALUMINUM/MAGNESIUM SUSP 30 ML UDC PO PRN (17:44)
[2025-07-22] MEDS: CARBIDOPA/LEVODOPA 25/100MG TAB PO SCH (20:30)
[2025-07-23 03:34] VITALS: TEMP 98.2
[2025-07-23 06:04] LABS: Hematocrit (blood only) 38.8 % (42.0-52.0); Hemoglobin 13.4 g/dL (14.0-18.0); Mean Corpuscular Hemoglobin 30.7 pg (25.0-34.0); Mean Corpuscular Volume 89.0 fL (80.0-100.0); Platelet Count 155 K/uL (130-400); RDW Standard Deviation 41.5 fL (36.4-46.3); Red Blood Count 4.36 M/uL (4.70-6.10); White Blood Count 6.39 K/ul (4.8-10.8)
[2025-07-23 06:29] LABS: Anion Gap 10.0 (3-11); Blood Urea Nitrogen 19.0 mg/dl (6-23); Calcium 9.3 mg/dl (8.6-10.3); Carbon Dioxide 22.0 mmol/L (21-32); Chloride 107.0 mmol/L (98-107); Creatinine Clr Calc Pharmacy 88.5 ml/min; Glucose 104.0 mg/dl (70-99(Fasting)); Potassium 3.9 mmol/L (3.5-5.1); Sodium 139.0 mmol/L (136-145)
[2025-07-23 08:06] VITALS: BP 123/74; PULSE 49; RESP 15; O2SAT 91
--- NOTE | 2025-07-23 09:29 | XCELERA ---
[id number]
[2025-07-23] MEDS: ASCORBIC ACID 500 MG TAB PO SCH (09:50)
[2025-07-23] MEDS: MULTIVITAMIN TAB PO SCH (09:51)
--- NOTE | 2025-07-23 10:09 | Cardiology Consultation ---
Date of Consultation July 23, 2025 Assessment & Plan (1) Symptomatic bradycardia: (2) Sinus bradycardia: (3) Hypertension: (4) Dyslipidemia: Plan Mr. Fraga is a 74 year old male with a history of Hypertension, Dyslipidemia, Lumbar Spinal Stenosis, Lyme Disease 2023, Osteoarthritis, and RLS who was admitted on 07/22/25 with Symptomatic Sinus Bradycardia secondary to Medications (Metoprolol and Nebivolol +/- Amlodipine). He was running his snowblower on 07/21/25 when he felt profoundly fatigued, lightheaded, had no energy, and barely felt like he was moving. After he parked the talent manager by the garage, he felt like his legs would not move to allow him to walk into the house. All he wanted to do was lie down or sit down. Unfortunately whenever he would lie down, he felt short of breath. Patient contacted his PCP who recommended that he come into the ER for further evaluation. Patient was noted to be profoundly bradycardic with heart rates in the low to mid 30's. He was given atropine and transiently had an improvement in his heart rate, but then is that medication wore off his heart rate slowed back down. Patient is Metoprolol, Nebivolol, and Amlodipine-Benazepril have been held since being admitted. After holding these medications over the past 24 hours he has remained bradycardic with heart rates in the upper 40's and low 50's, and his heart increases appropriately when he gets up and moves around. Patient is completely asymptomatic at this point and states that he has not felt this well in years -- he feels like his old self. Lyme test is pending but he does not have any evidence of AV conduction disturbance so I do not think that he has Lyme disease. We reviewed his echocardiogram results in detail. We also discussed his coal or ore controller showing predominantly sinus bradycardia with heart rates in the mid 40s to low 50s cur rently. Considering how well the patient feels at the present time, I suspect that he was just on too much beta-virgilio which drove his heart rate into the 30's. As he no longer has symptomatic bradycardia, there is no indication for permanent pacemaker. Recommend the followin. Remain off of metoprolol. 2. Remain off of nebivolol. 3. If his blood pressure increases or become elevated would resume combination diuretic +/- ACEI or ARB. 4. Maintain a low-sodium diet. Thank you for asking us to see this patient in consultation. History of Present Illness Reason for Consultation: -- Symptomatic Bradycardia. Requesting Physician: Manish Chau MD Attending Physician: Alfonso Banks MD History of Present Illness Mr. Fraga is a 74 year old male with a history of Hypertension, Dyslipidemia, Lumbar Spinal Stenosis, Lyme Disease 2023, Osteoarthritis, and RLS who was admitted on 07/22/25 with Symptomatic Sinus Bradycardia. He was running his snowblower on 07/21/25 when he felt profoundly fatigued, lightheaded, had no energy, and barely felt like he was moving. After he parked the talent manager by the garage, he felt like his legs would not move to allow him to walk into the house. All he wanted to do was lie down or sit down. Unfortunately whenever he would lie down, he felt short of breath. Patient contacted his PCP who recommended that he come into the ER for further evaluation. Patient was noted to be profoundly bradycardic with heart rates in the low to mid 30's. He was given atropine and transiently had an improvement in his heart rate, but then is that medication wore off his heart rate slowed back down. Patient is Metoprolol, Nebivolol, and Amlodipine-Benazepril have been held since being admitted. After holding these medications over the past 24 hours he has remained bradycardic with heart rates in the upper 40's and low 50's, and his heart increases appropriately when he gets up and moves around. Patient is completely asymptomatic at this point and states that he has not felt this well in years -- he feels like his old self. Lyme test is pending. Allergies Allergy/AdvReac Type Severity Reaction Status Date / Time finasteride Allergy Unknown RASH Verified 06/26/25 09:23 niacin Allergy Unknown RED,ITCHY,R Verified 06/26/25 09:23 GABRIELA silodosin Allergy Unknown RASH Verified 06/26/25 09:23 morphine AdvReac Severe RAPID BP Verified 06/26/25 09:23 DROP Home Medications Medication Instructions Recorded Confirmed Type ascorbic acid (vitamin C) 1,000 mg 2 g PO QAM 02/17/20 07/22/25 History tablet (Vitamin C) ibuprofen 200 mg tablet 400 - 600 mg PO QAM PRN Pain 02/17/20 07/22/25 History multivitamin 1 tab PO QAM 02/17/20 07/22/25 History carbidopa 25 mg-levodopa 100 mg 1 tab PO PM #90 tabs 06/27/24 07/22/25 Rx tablet simvastatin 20 mg tablet 20 mg PO DAILY #90 tabs 10/01/24 07/22/25 Rx nebivolol 5 mg tablet (Bystolic) 5 mg PO DAILY #90 tabs 12/29/24 07/22/25 Rx spironolactone 25 1 tab PO DAILY #90 tabs 04/03/25 07/22/25 Rx mg-hydrochlorothiazide 25 mg tablet amlodipine 5 mg-benazepril 40 mg 1 cap PO DAILY #90 caps 07/03/25 07/22/25 Rx capsule cyclobenzaprine 5 mg tablet 0 mg PO HS PRN muscle spasm 07/22/25 07/22/25 History metoprolol succinate 25 mg 12.5 mg PO HS 07/22/25 07/22/25 History tablet,extended release 24 hr Patient History Medical History Impaired glucose regulation BPH with obstruction/lower urinary tract symptoms Surgical History History of total hip replacement History of lumbar laminectomy History of arthroscopy of right shoulder History of arthroscopy of left shoulder Hx of cystoscopy with bladder diverticulectomy. 2014. Family History Brother Myocardial infarction, Onset Age: 61 Aneurysm of abdominal aorta Mother , age 80 Breast cancer Heart failure Father , age 59 Coronary heart disease Myocardial infarction Other Heart disease Hypertension Denies family history of Ovarian cancer Prostate cancer Diabetes Lung cancer Colorectal cancer Stroke Social History Smoking Status: Former smoker Tobacco Type: Cigarettes Age Started Using Tobacco: 6; Age Quit Using Tobacco: 18; packs per day: 1; Second Hand Exposure: No; Do You Dip or Chew Tobacco: No; Hx Alcohol Use: No Hx Substance Use: No Preferred Language: Chinese Communication Ability: Effective Visual Impairment: No Limitations Hearing Ability: Use of Hearing Aid Maintenance Craftsman Required: No Beliefs That Will Affect Care: None marital status: Current Living Situation: Spouse Current Living Situation Comment: pt lives in house w/ current occupational status: retired How many Children do You have: 1 Feels Safe at Home: Yes Childhood Exposure to Second-Hand Smoke: Yes caffeine: Yes Dental Care, Regularly: Yes Physical Activity Frequency: Does not Exercise Physical Activity Frequency Comment: Active lifestyle Seatbelt Use: always Sunscreen Use: No Assistive Devices: Hearing Aid - Bilateral Review of Systems Review of Systems: -- As per HPI. Physical Exam Physical Exam: Blood pressure is 123/74, pulse is 48 and regular. GENERAL: Patient in no acute distress. HEENT: Head is atraumatic, normocephalic. EOM's intact. Facies symmetric. No perioral cyanosis. NECK: No JVD. JVP is not elevated. Carotid upstrokes are + 2 bilaterally. No bruits. CHEST/LUNGS: Clear to auscultation throughout all lung mancera. No wheezes, rales, or crackles. CVS: S1 and S2 are regular, bradycardic without murmurs, gallops, or rubs. PMI is nonpalpable. No lifts, heaves, or thrills. No abdominal aortic or renal bruits. ABDOMINAL EXAM: Bowel sounds are present. EXTREMITIES: No clubbing or cyanosis. No edema. Extremities are well perf used. NEUROLOGIC EXAM: Patient is awake, alert, and oriented. Pleasant and cooperative. Answers questions appropriately. Speech is clear. ECHOCARDIOGRAM 07/23/25: -- Normal LV size, wall motion, and syst olic function. -- LVEF 60% to 65%. -- Borderline concentric LVH. -- No significant valvular abnormalities . DISTRIBUTION MANAGER: -- Sinus bradycardia in the 40's and low 50's. -- Overnight had transient heart in the mid-30's. -- Occasional PVC's. -- No cardiac pauses. -- No evidence of AV block. Results & Data Vital Signs (Past 12 Hours) Vital Signs Temp Pulse Resp BP Pulse Ox O2 Del Method 07/23/25 08:04 36.8 C 49 L 15 123/74 91 Room Air 07/23/25 03:33 36.8 C 47 L 18 118/71 94 Room Air 07/22/25 22:54 36.6 C 49 L 18 128/76 93 Room Air Laboratory Results Laboratory Results - last 24 hr 07/22/25 07/22/25 07/22/25 11:50 11:59 17:50 WBC 7.84 RBC 4.89 Hgb 15.0 POC Hgb 14.6 Hct 44.3 POC Hct 43 MCV 90.6 MCH 30.7 MCHC 33.9 RDW Std Deviation 42.7 RDW Coeff of Pacheco 13.0 Plt Count 189 MPV 12.4 Immature Gran % (Auto) 0.3 Neut % (Auto) 58.2 Lymph % (Auto) 25.6 [place] % (Auto) 11.4 Eos % (Auto) 3.6 Baso % (Auto) 0.9 Neut # (Auto) 4.57 Lymph # (Auto) 2.01 [place] # (Auto) 0.89 H Eos # (Auto) 0.28 Baso # (Auto) 0.07 Immature Gran # (Auto) 0.02 VBG pH 7.36 VBG pCO2 47 VBG pO2 < 20 VBG HCO3 27 VBG O2 Saturation < 60.0 VBG Base Excess 0.6 POC Sodium 140 Sodium 139 POC Potassium 4.7 Potassium 4.6 POC Chloride 103 Chloride 104 Carbon Dioxide 27 POC Total CO2 24 Anion Gap 8 POC Anion Gap 18.0 POC BUN 25 H BUN 24 H Creatinine 1.00 POC Creatinine 1.1 Est Cr Clr Drug Dosing 72.7 eGFR 78.00 BUN/Creatinine Ratio 24.0 H Glucose 99 POC Glucose (other) 100 H Lactate 1.2 Calcium 10.6 H POC Ioniz Calcium Carlito 1.33 H Magnesium 2.3 Total Bilirubin 0.8 AST 30 ALT 26 Alkaline Phosphatase 68 Troponin I High Sens 13.7 Total Protein 7.5 Albumin 4.5 Globulin 3.0 Albumin/Globulin Ratio 1.5 Lipase 27 TSH 2.001 Lyme Specimen Source Pending Lyme Disease DNA (PCR) Pending 07/23/25 05:36 WBC 6.39 RBC 4.36 L Hgb 13.4 L POC Hgb Hct 38.8 L POC Hct MCV 89.0 MCH 30.7 MCHC 34.5 RDW Std Deviation 41.5 RDW Coeff of [place] 12.6 Plt Count 155 MPV 12.0 Immature Gran % (Auto) Neut % (Auto) Lymph % (Auto) [place] % (Auto) Eos % (Auto) Baso % (Auto) Neut # (Auto) Lymph # (Auto) [place] # (Auto) Eos # (Auto) Baso # (Auto) Immature Gran # (Auto) VBG pH VBG pCO2 VBG pO2 VBG HCO3 VBG O2 Saturation VBG Base Excess POC Sodium Sodium 139 POC Potassium Potassium 3.9 POC Chloride Chloride 107 Carbon Dioxide 22 POC Total CO2 Anion Gap 10 POC Anion Gap POC BUN BUN 19 Creatinine 0.81 POC Creatinine Est Cr Clr Drug Dosing 88.5 eGFR 91.38 BUN/Creatinine Ratio 23.5 H Glucose 104 H POC Glucose (other) Lactate Calcium 9.3 POC Ioniz Calcium Carlito Magnesium Total Bilirubin AST ALT Alkaline Phosphatase Troponin I High Sens Total Protein Albumin Globulin Albumin/Globulin Ratio Lipase TSH Lyme Specimen Source Lyme Disease DNA (PCR) Diagnostic Findings CXR 07/22/25: Cardiac silhouette is mildly enlarged. No pneumothorax. No overt pulmonary edema. Mild linear subsegmental bibasilar densities again noted. Blunting of the costophrenic angles. No large pleural effusion. Bones appear grossly intact. IMPRESSION: 1. Bibasilar opacities favor atelectasis. 2. Cardiomegaly without overt pulmonary edema. Medications Administered Medication List Ascorbic Acid (Ascorbic Acid 500 Mg Tab) [facility] [place] Stop: 08/22/25 08:59 Last Admin: 07/23/25 09:50 Dose: 2,000 mg Documented By: MARCELINA Carbidopa/Levodopa (Carbidopa/Levodopa 25/100mg Tab) 1 tab PO PM [facility] Stop: 08/21/25 20:59 Last Admin: 07/22/25 20:30 Dose: 1 tab Documented By: DANNY Multivitamins (Multivitamin Tab) 1 tab PO QAM [facility] Stop: 08/22/25 08:59 Last Admin: 07/23/25 09:51 Dose: 1 tab Documented By: MARCELINA Discontinued Medications Atropine Sulfate (Atropine So4 1 Mg/Ml 1ml Vial) 1 mg IV NOW STA Stop: 07/22/25 11:52 Last Admin: 07/22/25 11:56 Dose: 1 mg Documented By: JAGDEEP Atropine Sulfate (Atropine Sulfate 0.1 Mg/Ml 10ml Syr) 0.5 mg IV NOW STA Stop: 07/22/25 12:46 Last Admin: 07/22/25 12:49 Dose: 0.5 mg Documented By: Sodium Chloride (Nss) 1,000 mls @ 999 mls/hr IV .Q1H1M ONE Stop: 07/22/25 12:51 Last Infusion: 07/22/25 13:03 Dose: Infused Documented By: Admin: 07/22/25 11:57 Dose: 999 mls/hr Documented By: JAGDEEP PG Care Time/CCT Total # of Minutes Spent Total Time Spent with Patient: Total time spent is greater than 50% in coordination of care (as documented) at patient's floor/unit and/or counseling patient:48 [place] [address] INT INP/OBS CARE 2/55MIN Patient Type New History Comprehensive Exam Detailed Medical Decision Making Moderate Complexity Diagnoses Symptomatic bradycardia R00.1 Sinus bradycardia R00.1 Primary hypertension I10 Hypertension type: primary hypertension Dyslipidemia E78.5 Time Spent (min) 64 (3) Hypertension Hypertension type: primary hypertension Qualified Code(s): I10 - Essential (primary) hypertension
--- NOTE | 2025-07-23 12:59 | Electrocardiogram Report ---
Test Reason : Blood Pressure : */* mmHG Vent. Rate : 45 BPM Atrial Rate : 45 BPM P-R Int : 174 ms QRS Dur : 96 ms QT Int : 490 ms P-R-T Axes : 53 36 11 degrees QTcB Int : 423 ms Sinus bradycardia Otherwise normal ECG When compared with ECG of 22-Jul-2025 13:40, (unconfirmed) Premature ventricular complexes are no longer Present QT has shortened Confirmed by Alfonso Banks ([id number]) on 07/23/2025 12:59:11 PM Referred By: REFERRED SELF Confirmed By: Alfonso Banks
--- NOTE | 2025-07-23 17:18 | Discharge Summary ---
Discharge Summary Date of Service July 23, 2025 Principal Dx & Hospital Course #1 = Principal Diagnosis (1) Symptomatic bradycardia: (2) Hypertension: (3) Lumbar stenosis: (4) Restless legs syndrome: Plan 74-year-old male on multiple outpatient medications including Nebivolol and metoprolol who presents with symptomatic bradycardia. Patient was given atropine with improvement of intrinsic heart rate antihypertensive medications are held. Patient also had an episode of Lyme disease treated 1 year ago. He is currently not in heart failure Cardiac echo is normal and normal EF #Symptomatic bradycardia. Hold all antihypertensive medications at discharge, if need be consider amlodipine benazepril , pt will record home bp and report to provider eval by EP feels this is most likely medication affects and not lyme. #Restless leg syndrome chronic back pain. Patient typically uses ibuprofen and cyclobenzaprine as needed For the restless leg syndrome the patient takes carbidopa levodopa. There is no formal diagnosis of Parkinson's disease prior to dc pt did have orthostatic bp checks and felt fine waling around Admission HPI Per Admitting Provider Presents with fatigue and weakness was found to have a sinus bradycardia in the 30s. Patient has a history of Lyme disease treated in 2023. Patient takes medications affecting his cardiac status including metoprolol and he has bisoprolol also listed. Patient was given a dose of atropine in the emergency department with improvement however this was transient. I discussed use of glucagon with the emergency room doctor he did not feel it was appropriate at this time. Patient states he did feel dizzy with these bradycardic episodes he did feel dizzy in April intermittently but this resolved. In addition to the dizziness he also feels some dyspnea on exertion with these episodes these are always in a standing position and never at sitting or lying. He said no chest pain associated with this. Patient has a history of hypertension restless leg syndrome chronic back pain from lumbar stenosis and dyslipidemia patient takes carbidopa levodopa for his restless leg syndrome Discharge Exam pleasant no symptoms, cardiac is regular, lungs clear Discharge Plan Discharge Items Patient Disposition: Home - Self-Care Reason For Visit: SYMPTOMATIC BRADYCARDIA Discharge Diagnosis: medication influenced slow heart rate Condition on Discharge: Serious Activity: Resume your previous activity Non-emergency contact: Primary Care Provider Call non-emergency contact if: your symptoms worsen Follow-up/Referrals: Ginger Rabago MD [Primary Care Provider] - 07/31/25 3:00 pm Diet: Regular Addtl Attending Provider Instructions: please keep track of your heart rate and blood pressure at different times of the day, and always check if not feeling well. Record these numbers and take to your primary care office at this time you have not needed any blood pressure controlling medications, we will not restart any and will ask you to see your primary care doctor soon Pending Studies at Discharge: Yes Studies:: lyme test Stand-Alone Forms: My [facility] [place], Smoking Cessation Medications and DC Order Prescriptions: Continued simvastatin 20 mg tablet 20 mg PO DAILY Qty: 90 3RF carbidopa-levodopa 25-100 mg tablet 1 tab PO PM Qty: 90 3RF multivitamin Tablet 1 tab PO QAM Patient Comments: 07/22- otc unable to verify ascorbic acid (vitamin C) [Vitamin C] 1,000 mg Tablet 2 g PO QAM Patient Comments: 07/22- otc unable to verify ibuprofen 200 mg Tablet 400 - 600 mg PO QAM PRN (Reason: Pain) Patient Comments: 07/22- otc unable to verify cyclobenzaprine 5 mg tablet 0 mg PO HS PRN (Reason: muscle spasm) Patient Comments: 07/22- no fill history unable to verify Discontinued nebivolol [Bystolic] 5 mg tablet 5 mg PO DAILY Qty: 90 3RF spironolacton-hydrochlorothiaz 25-25 mg tablet 1 tab PO DAILY Qty: 90 3RF amlodipine-benazepril 5-40 mg capsule 1 cap PO DAILY Qty: 90 3RF metoprolol succinate 25 mg tablet extended release 24 hr 12.5 mg PO HS Patient Comments: 07/22-per wellness visit note(06/25) wean off metoprolol succinate: from 25mg hs to 12.5mg hs x2wk then stop Discharge Orders: Discharge Order (Routine); Ordered 07/23/25 Ordered By: Manish Chau Admission Data Admit Date/Time: 07/22/25 15:58 Attending Provider: Manish Chau Admit Provider: Manish Chau Primary Care Provider: Ginger Rabago Other Providers: Manish Chau; Pratik Fitch Other Interventions: Discharge Summary Assessment (RN) Last Done: 07/23/25 13:49 Hospital Stay Data Consultations 07/22/25 15:01 ED Decision to Admit Stat 07/23/25 07:51 Consult Cardiology Routine Pending Results Patient Have Any Pending Studies at Discharge: Yes Discharge Instructions Given to Patient (Per Discharging Provider) please keep track of your heart rate and blood pressure at different times of the day, and always check if not feeling well. Record these numbers and take to your primary care office at this time you have not needed any blood pressure controlling medications, we will not restart any and will ask you to see your primary care doctor soon Total Time Total Time Spent Total Time Spent (In Minutes): I personally have spent greater than 30 minutes of time on the patient discharge today including review of tests, documentation, exam, and discussing treatment plan moving forward with the patient. Coding Level of Care Code 72969 INP/OBS DISCH >30 MIN Diagnoses Symptomatic bradycardia R00.1 Primary hypertension I10 Hypertension type: primary hypertension Lumbar stenosis M48.061 Restless legs syndrome G25.81
[2025-07-23] MEDS ORDERED: HEPARIN SOD 5,000 UNIT/0.5 ML VIAL SQ SCH (21:00)
--- NOTE | 2025-07-24 10:00 | Electrocardiogram Report ---
Test Reason : Blood Pressure : */* mmHG Vent. Rate : 65 BPM Atrial Rate : 65 BPM P-R Int : 148 ms QRS Dur : 90 ms QT Int : 508 ms P-R-T Axes : 116 11 17 degrees QTcB Int : 528 ms Sinus rhythm with frequent Premature ventricular complexes in a pattern of bigeminy Otherwise normal ECG When compared with ECG of 22-Jul-2025 11:42, Vent. rate has increased by 22 bpm QT has lengthened Confirmed by Alfonso Banks ([id number]) on 07/24/2025 10:00:15 AM Referred By: REFERRED SELF Confirmed By: Alfonso Banks
[2025-07-26 13:58] LABS: Lyme DNA PCR Blood Not Detected (Not Detected)
== END 2025-07-23 14:24 | disposition home or self-care (01) | DRG 310 ==
LOC: ED 11:34 → 2E 15:58 → INTOOBSV 15:58 → 2E 17:24